=== PATIENT | male | born 1955 | race Caucasian/White ===

== ENCOUNTER 2019-04-03 07:12 | Day surgery (SDC) | payer OTHER ==
[~2019-04-03] VITALS: Ht 198.1 cm; Wt 105.6 kg
[~2019-04-03 07:12] MED LIST: ATOR20 PO; GLIM4 PO; JARDIANCE10 MG PO; METF500 PO
== END 2019-04-03 09:18 | disposition home or self-care (01) ==
LOC: ORSCSDS 07:12
PROVIDERS: Surgery
PROC: 0DBH8ZX Excision of Cecum, Via Natural or Artificial Opening Endoscopic, Diagnostic (ICD-10-PCS; principal; 2019-04-03 08:30)
DX: Z12.11 Encounter for screening for malignant neoplasm of colon (principal); K63.5 Polyp of colon; E78.5 Hyperlipidemia, unspecified; E11.9 Type 2 diabetes mellitus without complications; I10 Essential (primary) hypertension; Z79.84 Long term (current) use of oral hypoglycemic drugs; Z79.899 Other long term (current) drug therapy
CPT/HCPCS: 82947; 88305; J0330; J0461; J2405; J2704; J7120

== ENCOUNTER → 2019-06-06 | Outpatient (CLI) | payer OTHER | END | disposition home or self-care (01) | LOC: LAB SHORT 10:37 → LAB EV 10:37 | DX: N39.0 Urinary tract infection, site not specified (principal) | CPT/HCPCS: 87086 ==

== ENCOUNTER → 2019-11-02 | Outpatient (CLI) | payer OTHER | END | disposition home or self-care (01) | LOC: LAB SHORT 13:53 → LAB 13:53 | DX: E11.65 Type 2 diabetes mellitus with hyperglycemia (principal) | CPT/HCPCS: 82043 ==

== ENCOUNTER → 2020-04-12 | Outpatient (CLI) | payer OTHER ==
[2020-04-12 15:55] LABS: Bun/Creatinine Ratio 21.6 (12.0-20.0); Calcium, Blood 9.4 mg/dL (8.5-10.1); Creatinine, Blood 1.67 mg/dL (0.60-1.20); Potassium, Blood 4.1 mmol/L (3.5-5.5)
== END | disposition home or self-care (01) ==
LOC: LAB SHORT 13:53 → PLD 13:53
PROVIDERS: Hospitalist
DX: R10.9 Unspecified abdominal pain (principal)
CPT/HCPCS: 80048

== ENCOUNTER → 2020-12-28 | Outpatient (CLI) | payer SELFPAY ==
[2020-12-28 15:53] LABS: Very Low Density Lipoprot Chol 12 mg/dL (6-32)
[2020-12-28 15:55] LABS: Alanine Aminotransfer (ALT/SGP 28 U/L (12-78); Albumin/Globulin Ratio 1.1 (0.8-1.8); Alk Phos 67 U/L (50-136); Anion Gap 5 mmol/L (6-16); Aspartate Aminotrans (AST/SGOT 17 U/L (12-37); Bilirubin, Total 0.7 mg/dL (0.1-1.0); Blood Urea Nitrogen 23 mg/dL (8-24); Bun/Creatinine Ratio 25.5 (12.0-20.0); CHOL/HDL RATIO 2.8; CO2, Blood 26 mmol/L (21-32); Calcium, Blood 9.2 mg/dL (8.5-10.1); Chloride, Blood 108 mmol/L (98-108); Cholesterol 170 mg/dL (50-200); Globulin, Blood 3.5 g/dL (2.2-4.0); Glomerular Filtration Rate >60 (60-); Glucose, Blood 138 mg/dL (70-99); HDL Cholesterol 60 mg/dL (>39); LDL/HDL RATIO 1.6; Low Density Lipoprotein Chol 98 mg/dL (0-110); Potassium, Blood 4.5 mmol/L (3.5-5.5); Sodium, Blood 139 mmol/L (136-145); Total Protein, Blood 7.5 g/dL (6.4-8.2); Triglycerides 59 mg/dL (30-160)
== END | disposition home or self-care (01) ==
LOC: LAB SHORT 14:06
PROVIDERS: Hospitalist
DX: E78.5 Hyperlipidemia, unspecified (principal); E11.9 Type 2 diabetes mellitus without complications; I10 Essential (primary) hypertension
CPT/HCPCS: 80053; 80061; 82043

== ENCOUNTER 2021-03-12 12:25 | Inpatient (IN) | payer MEDICARE, BC ==
[~2021-03-12] VITALS: Ht 193 cm; Wt 105.5 kg
[2021-03-12 12:56] LABS: BASOPHILS ABSOLUTE AUTO 0.03 K/mm3 (0.00-0.23); BASOPHILS PERCENT AUTO 0 % (0-2); EOSINOPHILS ABSOLUTE AUTO 0.09 K/mm3 (0.00-0.68); EOSINOPHILS PERCENT AUTO 1 % (0-6); Hematocrit 43.7 % (37.0-53.0); Hemoglobin 15.1 g/dL (13.5-17.5); IMMATURE GRAN ABSOLUTE AUTO 0.03 K/mm3 (0.00-0.10); IMMATURE GRAN PERCENT AUTO 0 % (0-1); LYMPHOCYTES ABSOLUTE AUTO 1.28 K/mm3 (0.84-5.20); LYMPHOCYTES PERCENT AUTO 15 % (21-46); MONOCYTES ABSOLUTE AUTO 0.47 K/mm3 (0.16-1.47); MONOCYTES PERCENT AUTO 6 % (4-13); Mean Corpuscular HGB 31.7 pg (26.0-34.0); Mean Corpuscular HGB Conc 34.6 g/dL (31.5-36.5); Mean Corpuscular Volume 92 fL (80-100); Mean Platelet Volume 9.9 fL (9.1-12.4); NEUTROPHILS ABSOLUTE AUTO 6.72 K/mm3 (1.96-9.15); NEUTROPHILS PERCENT AUTO 78 % (41-73); Platelet Count 180 K/mm3 (150-400); RDW Coefficient Variation 11.9 % (11.7-14.2); RDW Standard Deviation 40.1 fL (35.1-46.3); Red Blood Cell Count 4.77 M/mm3 (4.30-5.90); White Blood Cell Count 8.62 K/mm3 (4.00-11.30)
[2021-03-12 13:26] LABS: Alanine Aminotransfer (ALT/SGP 25 U/L (12-78); Albumin, Blood 3.9 g/dL (3.4-5.0); Alk Phos 67 U/L (50-136); Anion Gap 10 mmol/L (6-16); Aspartate Aminotrans (AST/SGOT 20 U/L (12-37); Bilirubin, Total 0.6 mg/dL (0.1-1.0); Blood Urea Nitrogen 24 mg/dL (8-24); Bun/Creatinine Ratio 28.4 (12.0-20.0); CO2, Blood 26 mmol/L (21-32); Calcium, Blood 9.4 mg/dL (8.5-10.1); Chloride, Blood 105 mmol/L (98-108); Creatinine, Blood 0.84 mg/dL (0.60-1.20); Globulin, Blood 3.8 g/dL (2.2-4.0); Glomerular Filtration Rate >60 (60-); Glucose, Blood 215 mg/dL (70-99); Potassium, Blood 3.9 mmol/L (3.5-5.5); Sodium, Blood 141 mmol/L (136-145); Total Protein, Blood 7.7 g/dL (6.4-8.2); Troponin I 0.059 ng/mL (0.000-0.040)
[2021-03-12 16:04] LABS: Anti-Xa UFH, PHA Monitoring <0.10 IU/mL; International Normalized Ratio 1.05
[2021-03-12] MEDS ORDERED: LISI5 PO (18:06)
--- NOTE | 2021-03-12 18:57 | NUR ---
ADMISSION NOTE/SHIFT SUMMARY PT AxOx4. PLEASANT AND COOPERATIVE WITH CARE. PT ARRIVED ON MEDICAL FLOOR FROM ED AT APPROX 1755. PT ON HEPARIN DRIP RUNNING 27ML/HR. PT INDEPENDENT IN THE ROOM. DENIES ANY PAIN AT THIS TIME. VITALS REVIEWED. PT CURRENTLY EATING DINNER. ORIENTED TO THE ROOM. PT NOTIFIED HE WILL BE NPO AT MIDNIGHT FOR EXPECTED STRESS TEST IN THE AM. PER DESK INTERVIEWER, TELE RUNNING SR AT 71. PT CURRENTLY RESTING IN BED. DENIES ANY NEEDS AT THIS TIME.
--- NOTE | 2021-03-13 02:40 | NUR ---
LABS CRITICAL LAB RESULTS TROP 1.[address] FAUSTIN MADE AWARE NO NEW 0RDER
--- NOTE | 2021-03-13 05:24 | NUR ---
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
--- NOTE | 2021-03-13 05:45 | NUR ---
ADMISSION SUMMARY PATIENT ADMITED ON MEDICAL FLOOR A0X3 WITH SOME FORGETFULNESS AT TIME.SKIN ASSESSMENT DONE SOME REDNESS TO HER BUTTOCKS LEFT SIDE WEAKNESS ON CONTNUES N/S RUNNING AT 175ML/HR YEE CATH DRAINING DARK BRAWN URINE 1200 URINE THIS MORNING.
[2021-03-13 05:51] LABS: CHOL/HDL RATIO 2.5; Cholesterol 146 mg/dL (50-200); HDL Cholesterol 58 mg/dL (>39); LDL/HDL RATIO 1.3; Low Density Lipoprotein Chol 73 mg/dL (0-110); Triglycerides 76 mg/dL (30-160); Very Low Density Lipoprot Chol 15 mg/dL (6-32)
--- NOTE | 2021-03-13 09:18 | NUR ---
Echocardiogram completed.
[2021-03-13 13:35] LABS: Influenza A, PCR NEGATIVE (NEGATIVE); Influenza B, PCR NEGATIVE (NEGATIVE); Resp Syncytial Virus, PCR NEGATIVE (NEGATIVE); SARS-Cov-2 (COVID-19) PCR, MMC NEGATIVE (NEGATIVE)
--- NOTE | 2021-03-13 14:06 | NUR ---
ANGIOGRAM WAS ORDERED FOR PATIENT. HE LEFT THE MEDICAL FLOOR APROX 2PM. REPORT WAS CALLED TO CARLENE GUARDADO AT [id number]. BELONGINGS WERE SENT DOWN TO PACU.
--- NOTE | 2021-03-13 18:18 | NUR ---
SHIFT SUMMARY: PT TRANSFER TO PCU FROM MED DEPT, S/P ANGIOGRAM W/NO INTERVENTION, ARRIVES APPROX 1450 TO UNIT. PT A&O, MAINTAINING O2 SATS >92% ON RA, SR ON TELE, DENIES CHEST PAIN. ACCESS SITE TO R RADIAL, TR BAND IN PLACE W/AIR BEING REMOVED PER PROTOCOL, NO SIGNS OF HEMATOMA. AT THIS TIME, PT PENDING GROUND TRANSFER FOR HIGHER LEVEL OF CARE. PT IS UP TO DATE ON PLAN AND AGREEABLE. WILL CONTINUE TO MONITOR AND TREAT ACCORDINGLY UNTIL PT DEPARTS OR CHANGE OF SHIFT.
== END 2021-03-13 19:00 | disposition short-term general hospital (02) | DRG 282 ==
LOC: ER 12:25 → ERHOLD 15:04 → MEDS 15:04 → PCU 03-13 14:05
PROVIDERS: Internal Medicine Cardiovascular Disease; Physician Assistant; Student in an Organized Health Care Education/Training Program; ADMIT Hospitalist
PROC: 4A023N7 Measurement of Cardiac Sampling and Pressure, Left Heart, Percutaneous Approach (ICD-10-PCS; principal; 2021-03-13)
PROC: B2111ZZ Fluoroscopy of Multiple Coronary Arteries using Low Osmolar Contrast (ICD-10-PCS; 2021-03-13)
DX: I21.4 Non-ST elevation (NSTEMI) myocardial infarction (principal); Z20.822 Contact with and (suspected) exposure to COVID-19; I10 Essential (primary) hypertension; I77.819 Aortic ectasia, unspecified site; I25.10 Atherosclerotic heart disease of native coronary artery without angina pectoris; E78.5 Hyperlipidemia, unspecified; E83.119 Hemochromatosis, unspecified; E11.9 Type 2 diabetes mellitus without complications; Z53.20 Procedure and treatment not carried out because of patient's decision for unspecified reasons; Z98.890 Other specified postprocedural states; Z88.0 Allergy status to penicillin; Z79.4 Long term (current) use of insulin; Z79.899 Other long term (current) drug therapy
CPT/HCPCS: 0241U; 36415; 71046; 80053; 80061; 82947; 83690; 83880; 84484; 85025; 85520; 85610; 85730; 86850; 86900; 86901; 93005; 93010; 93306; 93454; 96365; 97110; 97161; 99152; 99285-25; A9270; C1769; C1887; C1894; J1644; J2250; J3010; J7030; J7040; J7050; Q9967

== ENCOUNTER → 2022-04-19 | Outpatient (CLI) | payer MEDICARE, BC ==
[~2022-04-19] MED LIST changes: +LISI5 PO
== END ==
LOC: LAB 08:40 → LAB SHORT 08:40 → EDSTATUS 09:28
DX: E11.59 Type 2 diabetes mellitus with other circulatory complications (principal)
CPT/HCPCS: 82043

== ENCOUNTER → 2023-03-04 | Outpatient (CLI) | payer MEDICARE, BC ==
[2023-03-04 19:43] LABS: Microalb/Creat Ratio UR, Rand 5.969 mg/g (0.000-30.000); Microalbumin, Random Urine 7.76 mg/L (0.000-20.000)
== END ==
LOC: LAB SHORT 08:40 → LAB 08:40
PROVIDERS: Hospitalist
DX: E11.51 Type 2 diabetes mellitus with diabetic peripheral angiopathy without gangrene (principal)
CPT/HCPCS: 82043; 82570

== ENCOUNTER → 2024-03-12 | Outpatient (CLI) | payer MEDICARE, BC ==
[2024-03-12 15:12] LABS: Bun/Creatinine Ratio 22.1 (12.0-20.0); Calcium, Blood 9.1 mg/dL (8.5-10.1); Creatinine, Blood 0.86 mg/dL (0.60-1.20); Potassium, Blood 4.4 mmol/L (3.5-5.5)
[2024-03-12 15:43] LABS: Microalb/Creat Ratio UR, Rand 7.846 mg/g (0.000-30.000); Microalbumin, Random Urine 10.2 mg/L (0.000-20.000)
== END | disposition home or self-care (01) ==
LOC: LAB SHORT 13:40 → LAB 13:40
PROVIDERS: Hospitalist
DX: I10 Essential (primary) hypertension (principal); E11.42 Type 2 diabetes mellitus with diabetic polyneuropathy
CPT/HCPCS: 80048; 82043; 82570